=== PATIENT | female | born 1985 | race Caucasian/White ===

== ENCOUNTER 2018-06-07 19:37 | Inpatient (IN) | payer MEDICAID ==
--- NOTE | 2018-06-07 19:58 | ED Physician Chart ---
ED Chief Complaint/HPI - Patient Information Date Seen:: 06/07/18 Time Seen:: 19:55 Chief Complaint:: Left foot lesion History of Present Illness:: 33 yo female developed gradual onset of left foot lesions for 1 month. The ulcerative lesions cover almost the entire dorsal foot with oozing of fluid and swelling of the left foot. Patient states that the lesion is itchy without much pain. Patient took 2 oral antibiotics during past one week without improvement. Patient denied any recent history of trauma to the left foot. Patient denied history of diabetes. Allergies:: Allergies Allergy/AdvReac Type Severity Reaction Status Date / Time No Known Allergies Allergy Verified 06/07/18 19:44 Vitals:: Vital Signs - 8 hr 06/07/18 19:40 Temp 98.3 F HR 93 RR 18 BP 114/72 O2 Sat % 100 ED Review of Systems - Review of Systems General/Constitutional: No fever, No chills Skin: Skin lesions Head: No headache Eyes: No pain ENT: No nasal drainage Neck: No neck pain Cardio Vascular: No chest pain Pulmonary: No SOB GI: No nausea, No vomiting Musculoskeletal: No bone or joint pain Neurological: No focal symptoms ED Past Medical History - Past Medical History Past Medical History: No significant medical hx Social History: Non Smoker, No Alcohol, No Drug Use Surgical History: None Family Medical History - Family Member Mother History Unknown: Yes ED Physical Exam - Physical Examination General/Constitutional: Awake, Alert Head: Atraumatic Eyes: PERRL Skin: No ecchymosis ENMT: Nasal exam nl Neck: No nuchal rigidity Respiratory: Clear to Auscultation Cardio Vascular: RRR, No murmur, gallop, rubs, NL S1 S2 GI: No tenderness/rebounding/guarding Other Extremities comments:: Left foot and ankle swelling. The ulcerative lesion covers almost the entire dorsal foot with oozing of fluid. Increased pigmentation surrounding the lesion. Non-tender. Neuro/Psych: No focal deficits ED Labs/Radiology/EKG Results - Radiology Results Results: LLE arterial u/s: no stenosis, no plaque. Left DPA not imaged due to open sores/ oozing LLE venous u/s: negative DVT ED Assessment - Assessment General Assessment: Cellulitis and large ulcers of left foot to rule out vascular deficiency or possible diabetic ulcers Assessment/Comments:: CBC, CMP, HbA1c, CRP, ESR Arterial ultrasound of left lower extremity Venous ultrasound of left lower extremity Admitted to med surg for further evaluation and treatment ED Septic Shock - . Is Septic Shock (SBP<90, OR Lactate>4 mmol\L) present?: No - <6hrs of presentation: Vital Signs: Vital Signs - 8 hr 06/07/18 19:40 Temp 98.3 F HR 93 RR 18 BP 114/72 O2 Sat % 100 ED Reassessment (Disposition) - Reassessment Reassessment Condition:: Unchanged - Patient Disposition Discharge/Transfer:: Acute Care w/in this hosp Admitting Medical Physician:: Sedrick Lowe
[2018-06-07 20:17] LABS: % BASOPHILS 0.2 % (0.0-2.0); % LYMPHOCYTES 30.6 % (20.0-50.0); % MONOCYTES 5.9 % (2.0-10.0); % NEUTROPHILS 44.3 % (40.0-80.0); EOSINOPHILE ABSOLUTE 1.6 Th/cmm (0.1-0.4); HEMATOCRIT 36.3 % (41.0-60); HEMOGLOBIN 12.4 gm/dL (12-16); LYMPHOCYTE ABSOLUTE 2.5 Th/cmm (1.5-3.0); MEAN CELL VOLUME 84.8 fl (81-100); MEAN CORPUSCULAR HEMOGLOBIN 28.9 pg (27.0-31.0); MEAN CORPUSCULAR HGB CONC 34.1 pg (28.0-36.0); MONOCYTE ABSOLUTE 0.5 Th/cmm (0.3-1.0); NEUTROPHILE ABSOLUTE 3.6 Th/cmm (1.8-8.0); PLATELET COUNT 138 Th/cmm (150-400); RED BLOOD COUNT 4.28 Mil/cmm (3.80-5.10); RED CELL DISTRIBUTION WIDTH 13.1 % (11.5-20.0); WHITE BLOOD COUNT 8.2 Th/cmm (4.8-10.8)
[2018-06-07 20:33] LABS: A1C % 4.8 % (4.0-6.0); ALB/GLOB RATIO 1.7 (1.0-1.8); ALKALINE PHOSPHATASE 34 U/L (34-104); ANION GAP 8.2 (7.0-16.0); BILIRUBIN,TOTAL 0.3 mg/dL (0.3-1.0); BUN - UREA NITROGEN 15 mg/dL (7-25); CALCIUM SERUM 8.9 mg/dL (8.6-10.3); CARBON DIOXIDE 24.5 mEq/L (21.0-31.0); CHLORIDE 108 mEq/L (98-107); CREATININE - SERUM 0.8 mg/dL (0.6-1.2); GFR AFRICAN-AMERICAN > 60.0 ml/min (>90); GFR NON AFRICAN-AMERICAN > 60.0 ml/min; GLUCOSE 98 mg/dL (70-105); POTASSIUM SERUM 3.7 mEq/L (3.5-5.1); SGOT 13 U/L (13-39); SGPT/ALT 10 U/L (7-52); SODIUM SERUM 137 mEq/L (136-145); TOTAL PROTEIN,SERUM 6.4 gm/dL (6.0-8.3)
[2018-06-07 20:49] LABS: ESR SEDIMENTATION SED RATE 9 mm/hr (0-30)
[2018-06-08 01:10] VITALS: BP 97/57
[2018-06-08] MEDS: Sodium Chloride 0.9% 1,000 ML IV SCH ×2 (01:24→21:50)
[2018-06-08] MEDS ORDERED: Piperacillin Sodium/Tazobact 3.375 gm Vial IV ONE (04:31)
--- NOTE | 2018-06-08 08:59 | History and Physical ---
History of Present Illness - HPI Chief Complaint: Edema of left foot HPI: Patient refer that one month ago started with Edema and redness of left foot. Lesion increasing with ulceration of all dorzal area of left foot, despite to take 2 antibiotics x 4 days. 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 Pertinent Hx GI: Report: No Pertinent Hx Psych: Report: No Pertinent Hx Musculoskeletal: Report: No Pertinent Hx Rheumatologic: Report: No pertinent Hx Infectious Disease: Report: No Pertinent Hx Renal/: Report: No Pertinent Hx Endocrine: Report: No Pertinent Hx Dermatology: Report: No Pertinent Hx - Past Surgical History Past Surgical History: No pertinent Hx Family Medical History - Family Member Mother History Unknown: Yes Social History Smoke: No Alcohol: None Drugs: None Lives: With Family Domestic Violence: Negative - Allergies Allergies/Adverse Reactions: Allergies Allergy/AdvReac Type Severity Reaction Status Date / Time No Known Allergies Allergy Verified 06/07/18 19:44 Review of Systems - Review of Systems Constitutional: Report: Sweats Eyes: Report: No Significant ENT: Report: No Significant Respiratory: Report: No Significant Cardiovascular: Report: No Significant Gastrointestinal: Report: No Significant Genitourinary: Report: No Significant Musculoskeletal: Report: No Significant Skin: Report: Other (Ulcer in dorzal area of left foot ) Neurological: Report: No Significant Physical Exam - Physical Exam HEENT: Report: Ears Nose Throat within normal limits Neck: Report: Within normal limits Cardiovascular Systems: Report: Regular, Rate and Rhythm Respiratory: Report: Breath Sounds are within normal limits Abdomen: Report: Non-tender to palpation Back: Report: Inspection of back is within normal limits. Extremities: Report: Other (Linited movement of left foot) Skin: Report: Other (Ulcer that cover most of dorzal area of left foot with oozing) Neuro/Psych: Report: Mood affect is within normal limits - Lab Results All Lab Results last 24 hours: Laboratory Results - last 24 hr 08/14/18 08/14/18 08/14/18 20:05 20:05 20:05 WBC 8.2 RBC 4.28 Hgb 12.4 Hct 36.3 L MCV 84.8 MCH 28.9 MCHC Differential 34.1 RDW 13.1 Plt Count 138 L MPV 9.0 Neutrophils % 44.3 Lymphocytes % 30.6 Monocytes % 5.9 Eosinophils % 19.0 H Basophils % 0.2 Neutrophils (Manual) Not Reportable ESR 9 Sodium 137 Potassium 3.7 Chloride 108 H Carbon Dioxide 24.5 Anion Gap 8.2 BUN 15 Creatinine 0.8 Est GFR ( Amer) > 60.0 Est GFR (Non-Af Amer) > 60.0 BUN/Creatinine Ratio 18.8 Glucose 98 Hemoglobin A1c % 4.8 Calcium 8.9 Total Bilirubin 0.3 AST 13 ALT 10 Alkaline Phosphatase 34 C-Reactive Protein Total Protein 6.4 Albumin 4.0 Globulin 2.4 Albumin/Globulin Ratio 1.7 06/07/18 20:05 WBC RBC Hgb Hct MCV MCH MCHC Differential RDW Plt Count MPV Neutrophils % Lymphocytes % Monocytes % Eosinophils % Basophils % Neutrophils (Manual) ESR Sodium Potassium Chloride Carbon Dioxide Anion Gap BUN Creatinine Est GFR ( Amer) Est GFR (Non-Af Amer) BUN/Creatinine Ratio Glucose Hemoglobin A1c % Calcium Total Bilirubin AST ALT Alkaline Phosphatase C-Reactive Protein < 0.2 Total Protein Albumin Globulin Albumin/Globulin Ratio - Assessment Assessment: Patient is awake, alert, calm, in no acute distress. US shows no blood obstruction. Dx: Cellulitis. - Plan Plan: Patient in IV Vanco and zosyn, consult with surgery and ID requested. Will continue to monitor.
--- NOTE | 2018-06-08 09:20 | Diagnostic Imaging Report ---
Bilateral lower extremity DVT study HISTORY: Left foot cellulitis and swelling COMPARISON: None Technique: Longitudinal and transverse sonographic images of the bilateral lower extremity veins were obtained with doppler analysis. FINDINGS: There is normal compressibility, augmentation and phasicity of the bilateral common femoral, superficial femoral, popliteal, and posterior tibial veins. No thrombus is visualized. Incidentally noted is prominent left groin lymph node with fatty claudia measuring up to 3.3 x 2.9 cm. IMPRESSION: No evidence of thrombus within the bilateral lower extremity veins. Prominent left groin lymph node with fatty hilum measuring up to 3.3 x 2.9 cm. Findings are nonspecific and may be reactive.
--- NOTE | 2018-06-08 09:23 | Diagnostic Imaging Report ---
Bilateral lower extremity arterial study HISTORY: Left lower extremity cellulitis and swelling COMPARISON: None Technique: Longitudinal and transverse sonographic images of the bilateral lower extremity arteries were obtained with doppler analysis. FINDINGS: Exam of the right side demonstrates triphasic flow with the right common femoral and superficial femoral arteries. Biphasic flow is seen in the popliteal, tibialis anterior, tibialis posterior and dorsalis pedis arteries. Mild atherosclerosis is noted. Exam of the left side demonstrates triphasic flow in the left common femoral artery extending to left popliteal artery. There is biphasic flow within the left tibialis anterior and tibialis posterior arteries. The left dorsalis pedis artery is not visualized due to overlying bandage material. Mild atherosclerotic vascular disease is noted. Ankle brachial indices were not performed. IMPRESSION: Mild atherosclerotic vascular disease. No Evidence of hemodynamically significant stenosis. The left dorsalis pedis artery was not able to be imaged due to overlying sores in this region. If necessary CT angiography of of the lower extremity may also be obtained.
--- NOTE | 2018-06-08 12:50 | Diagnostic Imaging Report ---
CT left lower extremity with IV contrast History: Pain and swelling, rule out osteomyelitis Comparison: None Technique: Axial images were obtained from the left distal tibia to the forefoot with IV contrast. Multiplanar reconstructions were made. Total DLP 78 CTDI 3.1 Findings: There is diffuse subcutaneous edema seen greatest along the dorsal foot. No drainable fluid collection identified. No evidence of an acute fracture. No osseous erosions identified. Mild degenerative changes are noted. IMPRESSION: Diffuse subcutaneous edema greatest along the dorsal foot. Please correlate clinically for cellulitis. No drainable fluid collection identified No osseous erosions. No CT evidence of osteomyelitis. If there is continued concern for osteomyelitis, MRI follow-up may be obtained.
--- NOTE | 2018-06-08 13:07 | General Progress Note ---
Subjective - Review of Systems Service Date: 06/08/18 Events since last encounter: WENT TO ER AT [facility] A MONTH AGO AND WAS TOLD SHE HAD FUNGAL INFECTION/ VENOUS AND ARTERIAL DOPPLER NEGATIVE CT OF LEG NO DRAINABLE ABSCESS ID BILINGUAL [employer]ER TO TREAT MEDICALLY ELEVATE LEG AND WARM COMPRESS RECOMMENDED Objective - Results Result Diagrams: 06/07/18 20:05 06/07/18 20:05 Recent Labs: Laboratory Last Values WBC 8.2 Th/cmm (4.8-10.8) 06/07/18 20:05 RBC 4.28 Mil/cmm (3.80-5.10) 06/07/18 20:05 Hgb 12.4 gm/dL (12-16) 06/07/18 20:05 Hct 36.3 % (41.0-60) L 06/07/18 20:05 MCV 84.8 fl (81-100) 06/07/18 20:05 MCH 28.9 pg (27.0-31.0) 06/07/18 20:05 MCHC Differential 34.1 pg (28.0-36.0) 06/07/18 20:05 RDW 13.1 % (11.5-20.0) 06/07/18 20:05 Plt Count 138 Th/cmm (150-400) L 06/07/18 20:05 MPV 9.0 fl 06/07/18 20:05 Neutrophils % 44.3 % (40.0-80.0) 06/07/18 20:05 Lymphocytes % 30.6 % (20.0-50.0) 06/07/18 20:05 Monocytes % 5.9 % (2.0-10.0) 06/07/18 20:05 Eosinophils % 19.0 % (0.0-5.0) H 06/07/18 20:05 Basophils % 0.2 % (0.0-2.0) 06/07/18 20:05 Neutrophils (Manual) Not Reportable 06/07/18 20:05 ESR 9 mm/hr (0-30) 06/07/18 20:05 Sodium 137 mEq/L (136-145) 06/07/18 20:05 Potassium 3.7 mEq/L (3.5-5.1) 06/07/18 20:05 Chloride 108 mEq/L (98-107) H 06/07/18 20:05 Carbon Dioxide 24.5 mEq/L (21.0-31.0) 06/07/18 20:05 Anion Gap 8.2 (7.0-16.0) 06/07/18 20:05 BUN 15 mg/dL (7-25) 06/07/18 20:05 Creatinine 0.8 mg/dL (0.6-1.2) 06/07/18 20:05 Est GFR ( Amer) > 60.0 ml/min (>90) 06/07/18 20:05 Est GFR (Non-Af Amer) > 60.0 ml/min 06/07/18 20:05 BUN/Creatinine Ratio 18.8 06/07/18 20:05 Glucose 98 mg/dL (70-105) 06/07/18 20:05 Hemoglobin A1c % 4.8 % (4.0-6.0) 06/07/18 20:05 Calcium 8.9 mg/dL (8.6-10.3) 06/07/18 20:05 Total Bilirubin 0.3 mg/dL (0.3-1.0) 06/07/18 20:05 AST 13 U/L (13-39) 06/07/18 20:05 ALT 10 U/L (7-52) 06/07/18 20:05 Alkaline Phosphatase 34 U/L (34-104) 06/07/18 20:05 C-Reactive Protein < 0.2 mg/dL (0.0-0.9) 06/07/18 20:05 Total Protein 6.4 gm/dL (6.0-8.3) 06/07/18 20:05 Albumin 4.0 gm/dL (3.7-5.3) 06/07/18 20:05 Globulin 2.4 gm/dL 06/07/18 20:05 Albumin/Globulin Ratio 1.7 (1.0-1.8) 06/07/18 20:05 - Physical Exam Vitals and I&O: Vital Signs Temp 97.0 F 06/08/18 11:39 Pulse 69 06/08/18 11:39 Resp 18 06/08/18 11:39 BP 85/60 06/08/18 11:39 Pulse Ox 100 06/08/18 11:39 Intake & Output 08/06/08/18 06/08/18 18:59 06:59 18:59 Intake Total 350 Balance 350 Weight (lbs) 66.678 kg Intake: Intake, IV Amount 50 Piperacillin Sodium/ 50 Tazobact 3.375 gm In Sodium Chloride 0.9% 50 ml @ 100 mls/hr IV Q8HR [facility] Rx#:[id number] Oral 300 Other: # Voids 2 # Bowel Movements 0 Weight Source Bedscale Active Medications: Current Medications Sodium Chloride (Nacl 0.9%) 1,000 mls @ 75 mls/hr IV .[id number] [facility] Stop: 08/06/18 23:29 Last Admin: 06/08/18 01:24 Dose: 75 mls/hr Piperacillin Sod/Tazobactam (Sod 3.375 gm/ Sodium Chloride) 50 mls @ 100 mls/ hr IV Q8HR [facility] Stop: 08/07/18 04:59 Last Admin: 06/08/18 12:35 Dose: 100 mls/hr Vancomycin HCl 1 gm/ Sodium (Chloride) 250 mls @ 165 mls/hr IV Q12HR@0900,2100 [facility] Stop: 08/07/18 10:59 Last Admin: 06/08/18 11:42 Dose: 165 mls/hr Miscellaneous (Vancomycin Iv Per Pharmacy) 1 daisha [facility] PRN PRN PRN Reason: PROTOCOL Stop: 08/07/18 08:29 Naproxen (Naprosyn) 500 mg PO BIDWM [facility] Stop: 08/07/18 17:59
[2018-06-08] MEDS ORDERED: IOHEXOL 300mgI/mL 100 ML VIAL IVP ONE (15:02)
--- NOTE | 2018-06-08 21:11 | Consultation ---
DATE OF CONSULTATION: 06/08/2018 INFECTIOUS DISEASE CONSULTATION REFERRING PHYSICIAN: Sedrick Lowe M.D. REASON FOR CONSULTATION: Cellulitis of left foot. HISTORY OF PRESENT ILLNESS: The patient is a 33-year-old female developed swelling and redness of the left foot with very dry skin. She stated that she fell fungal infection. However, she was given Bactrim with no help. So her condition got worse and now developed a superficial sloughing of the skin. So, she came to the ER for further evaluation and management. As per the record, the patient has taken 2 oral antibiotics with no improvement. PAST MEDICAL HISTORY: Noncontributory. None significant. ALLERGIES: NKDA. MEDICATIONS: As per medication reconciliation sheet. Antibiotic heaton, the patient is receiving vancomycin IV and Zosyn. SOCIAL HISTORY: The patient lives at home. Denies any smoking, alcohol or drug use. The patient lives with family at home. FAMILY HISTORY: Noncontributory. REVIEW OF SYSTEMS: GENERAL: The patient denies any fever or chills. HEENT: No diplopia, no photophobia, no sore throat. RESPIRATORY: No cough, no shortness of breath. CARDIOVASCULAR: No chest pain or palpitation. GASTROINTESTINAL: No nausea, no vomiting, no diarrhea, no constipation. GENITOURINARY: No dysuria. NEUROLOGIC: No headache, no dizziness, no focal weakness. SKIN: The patient has superficial ulceration of dorsal aspect of the left foot with swelling of the left foot. PHYSICAL EXAMINATION: VITAL SIGNS: Shows temperature is 97 degrees Fahrenheit, pulse 69, respiration is 18, blood pressure 85/60. GENERAL: The patient is comfortable lying in the bed, not in acute distress, well nourished, well developed. HEENT: Head is normocephalic, atraumatic. Oral cavity moist, pink tongue. Eyes: Pallor is present, no icterus. Pupils PERRLA, EOMI. NECK: Supple, no JVD, no carotid bruit. Trachea in midline. CHEST: Bilateral breath sounds. No crackles or wheezing. HEART: S1, S2 within normal limits. Regular rhythm. No murmur, no gallop. ABDOMEN: Soft, nontender, nondistended. Bowel sounds present. EXTREMITIES: No cyanosis, no clubbing, no edema. The patient has swelling of the left foot. There is dry skin, dermatitis of the left foot distal to the ankle joint. There is a superficial ulceration of the dorsal aspect of the left foot. Did review the pictures for detail. NEUROLOGIC: Alert, awake, oriented x 3. No focal history. LABORATORY DATA: Current lab shows WBC count is 8200, hemoglobin 12.4, hematocrit 36.3, platelets are 138,000, neutrophil is 44.3%. Sodium 137, potassium 3.7, chloride 108, bicarbonate is 24.5, BUN 15, creatinine 0.8, glucose is 98. Blood cultures are pending. IMPRESSION: 1. Left foot cellulitis with superficial ulceration on the dorsal aspect. 2. Dry skin dermatitis versus fungal infection. RECOMMENDATIONS: I agree with vancomycin and Zosyn at this time, wound care. Check the blood culture and wound cultures. Depending on the culture report, we will define final antibiotic therapy. Thank you, Dr. Lowe for involving me in taking care of this patient. ADDENDUM CT scan of the left foot suggest cellulitis. No evidence of osteomyelitis. Venous ultrasound of lower extremities showed no evidence of DVT. Arterial ultrasound suggested no evidence of hemodynamically significant stenosis. Thank you, Dr. Lowe for involving me in taking care of this patient. JOB# [id number]
--- NOTE | 2018-06-09 08:26 | Diagnostic Imaging Report ---
Chest x-ray single view History: Chest pain Comparison: None The heart size is normal. No focal pulmonary parenchymal processes. No hilar or mediastinal abnormalities. Impression: No acute abnormalities
--- NOTE | 2018-06-09 08:57 | General Progress Note ---
Subjective - Review of Systems Service Date: 06/09/18 Subjective: I am better Objective - Results Result Diagrams: 06/07/18 20:05 06/07/18 20:05 Recent Labs: Laboratory Last Values WBC 8.2 Th/cmm (4.8-10.8) 06/07/18 20:05 RBC 4.28 Mil/cmm (3.80-5.10) 06/07/18 20:05 Hgb 12.4 gm/dL (12-16) 06/07/18 20:05 Hct 36.3 % (41.0-60) L 06/07/18 20:05 MCV 84.8 fl (81-100) 06/07/18 20:05 MCH 28.9 pg (27.0-31.0) 06/07/18 20:05 MCHC Differential 34.1 pg (28.0-36.0) 06/07/18 20:05 RDW 13.1 % (11.5-20.0) 06/07/18 20:05 Plt Count 138 Th/cmm (150-400) L 06/07/18 20:05 MPV 9.0 fl 06/07/18 20:05 Neutrophils % 44.3 % (40.0-80.0) 06/07/18 20:05 Lymphocytes % 30.6 % (20.0-50.0) 06/07/18 20:05 Monocytes % 5.9 % (2.0-10.0) 06/07/18 20:05 Eosinophils % 19.0 % (0.0-5.0) H 06/07/18 20:05 Basophils % 0.2 % (0.0-2.0) 06/07/18 20:05 Neutrophils (Manual) Not Reportable 06/07/18 20:05 ESR 9 mm/hr (0-30) 06/07/18 20:05 Sodium 137 mEq/L (136-145) 06/07/18 20:05 Potassium 3.7 mEq/L (3.5-5.1) 06/07/18 20:05 Chloride 108 mEq/L (98-107) H 06/07/18 20:05 Carbon Dioxide 24.5 mEq/L (21.0-31.0) 06/07/18 20:05 Anion Gap 8.2 (7.0-16.0) 06/07/18 20:05 BUN 15 mg/dL (7-25) 06/07/18 20:05 Creatinine 0.8 mg/dL (0.6-1.2) 06/07/18 20:05 Est GFR ( Amer) > 60.0 ml/min (>90) 06/07/18 20:05 Est GFR (Non-Af Amer) > 60.0 ml/min 06/07/18 20:05 BUN/Creatinine Ratio 18.8 06/07/18 20:05 Glucose 98 mg/dL (70-105) 06/07/18 20:05 Hemoglobin A1c % 4.8 % (4.0-6.0) 06/07/18 20:05 Calcium 8.9 mg/dL (8.6-10.3) 06/07/18 20:05 Total Bilirubin 0.3 mg/dL (0.3-1.0) 06/07/18 20:05 AST 13 U/L (13-39) 06/07/18 20:05 ALT 10 U/L (7-52) 06/07/18 20:05 Alkaline Phosphatase 34 U/L (34-104) 06/07/18 20:05 C-Reactive Protein < 0.2 mg/dL (0.0-0.9) 06/07/18 20:05 Total Protein 6.4 gm/dL (6.0-8.3) 06/07/18 20:05 Albumin 4.0 gm/dL (3.7-5.3) 06/07/18 20:05 Globulin 2.4 gm/dL 06/07/18 20:05 Albumin/Globulin Ratio 1.7 (1.0-1.8) 06/07/18 20:05 Vancomycin Trough 8.6 ug/mL (5-10) 06/09/18 08:10 - Physical Exam Vitals and I&O: Vital Signs Temp 97.9 F 06/09/18 08:47 Pulse 61 06/09/18 08:47 Resp 18 06/09/18 08:47 BP 80/38 06/09/18 08:47 Pulse Ox 100 06/09/18 08:47 Intake & Output 06/08/18 06/09/18 06/09/18 18:59 06:59 18:59 Intake Total 1900 850 Balance 1900 850 Weight (lbs) 66.678 kg 64.41 kg Intake: Intake, IV Amount 1300 350 Piperacillin Sodium/ 50 100 Tazobact 3.375 gm In Sodium Chloride 0.9% 50 ml @ 100 mls/hr IV Q8HR [facility] Rx#:[id number] Sodium Chloride 0.9% 1, 1000 000 ml @ 75 mls/hr IV . [id number] [facility] Rx#:[id number] Vancomycin HCl 1 gm In 250 250 Sodium Chloride 0.9% 250 ml @ 165 mls/hr IV Q12HR@ 0900,2100 [facility] Rx#: [id number] Oral 600 500 Other: # Voids 3 3 # Bowel Movements 1 1 Stool Characteristics Soft Weight Source Bedscale Bedscale Active Medications: Current Medications Sodium Chloride (Nacl 0.9%) 1,000 mls @ 75 mls/hr IV .[id number] [facility] Stop: 08/06/18 23:29 Last Admin: 06/08/18 21:50 Dose: 75 mls/hr Piperacillin Sod/Tazobactam (Sod 3.375 gm/ Sodium Chloride) 50 mls @ 100 mls/ hr IV Q8HR [facility] Stop: 08/07/18 04:59 Last Infusion: 06/09/18 05:48 Dose: Infused Vancomycin HCl 1 gm/ Sodium (Chloride) 250 mls @ 165 mls/hr IV Q12HR@0900,2100 [facility] Stop: 08/07/18 10:59 Last Admin: 06/09/18 08:32 Dose: 165 mls/hr Miscellaneous (Vancomycin Iv Per Pharmacy) 1 [facility] PRN PRN PRN Reason: PROTOCOL Stop: 08/07/18 08:29 Naproxen (Naprosyn) 500 mg PO BIDWM [facility] Stop: 08/07/18 17:59 Last Admin: 06/09/18 08:31 Dose: 500 mg Terbinafine HCl (Lamisil) 250 mg PO DAILY [facility] Stop: 08/08/18 08:59 General: Alert, Oriented x3, No acute distress HEENT: Atraumatic Neck: Supple Cardiovascular: Regular rate Lungs: Clear to auscultation Abdomen: Bowel sounds Extremities: Other (Less edema of left foot, more dry) Skin: Other (Dry blister of left dorzal area of left foot.) Psych/Mental Status: Mental status NL Assessment/Plan - Assessment Assessment: Patient is awake, alert, calm, in no acute distress. US shows no blood obstruction. Foot CT shows cellulitis, no osteomyelitis. Dx: Cellulitis. - Plan Plan: Patient in IV [facility], Already seen by surgery and ID. Due to the history of athlet foot Terbinafine will be introduced. Will continue to monitor.
--- NOTE | 2018-06-09 10:51 | Consultation ---
DATE OF CONSULTATION: 06/08/2018 SURGICAL CONSULTATION REFERRING PHYSICIAN: Sedrick Lowe MD REASON FOR CONSULTATION: Cellulitis, left foot. Thank you for referring this patient to me. HISTORY OF PRESENT ILLNESS: This is a 33-year-old female who claimed that about a month ago, she was in the ER at [facility] where she was diagnosed with a fungal infection and was given medication. She then followed up with her primary doctor and treatment was continued; however, the condition got worse for which she is admitted now. PAST MEDICAL HISTORY: Unremarkable. The patient had undergone Doppler studies including venous and arterial ultrasound were negative. CT scan of the leg does not show any drainable fluid collection. PHYSICAL EXAMINATION: Shows scaling and swelling of the left foot with some minor superficial ulcerations. No fluctuant mass. Circulation appears to be intact with no ischemic change of toes. RECOMMENDATION: Antibiotics is instituted per ID senior compensation consultant, elevation of the foot is important. There appears to be no surgical indication for any procedure. We will follow with you. [facility]# [id number]
--- NOTE | 2018-06-09 13:53 | Infectious Disease Prog Note ---
Infectious Disease Subjective - Review of Systems Service Date: 06/09/18 Subjective: No new change, no fever. Infectious Disease Objective - Results Result Diagrams: 06/07/18 20:05 06/07/18 20:05 Recent Labs: Laboratory Last Values WBC 8.2 Th/cmm (4.8-10.8) 06/07/18 20:05 RBC 4.28 Mil/cmm (3.80-5.10) 06/07/18 20:05 Hgb 12.4 gm/dL (12-16) 06/07/18 20:05 Hct 36.3 % (41.0-60) L 06/07/18 20:05 MCV 84.8 fl (81-100) 06/07/18 20:05 MCH 28.9 pg (27.0-31.0) 06/07/18 20:05 MCHC Differential 34.1 pg (28.0-36.0) 06/07/18 20:05 RDW 13.1 % (11.5-20.0) 06/07/18 20:05 Plt Count 138 Th/cmm (150-400) L 06/07/18 20:05 MPV 9.0 fl 06/07/18 20:05 Neutrophils % 44.3 % (40.0-80.0) 06/07/18 20:05 Lymphocytes % 30.6 % (20.0-50.0) 06/07/18 20:05 Monocytes % 5.9 % (2.0-10.0) 06/07/18 20:05 Eosinophils % 19.0 % (0.0-5.0) H 06/07/18 20:05 Basophils % 0.2 % (0.0-2.0) 06/07/18 20:05 Neutrophils (Manual) Not Reportable 06/07/18 20:05 ESR 9 mm/hr (0-30) 06/07/18 20:05 Sodium 137 mEq/L (136-145) 06/07/18 20:05 Potassium 3.7 mEq/L (3.5-5.1) 06/07/18 20:05 Chloride 108 mEq/L (98-107) H 06/07/18 20:05 Carbon Dioxide 24.5 mEq/L (21.0-31.0) 06/07/18 20:05 Anion Gap 8.2 (7.0-16.0) 06/07/18 20:05 BUN 15 mg/dL (7-25) 06/07/18 20:05 Creatinine 0.8 mg/dL (0.6-1.2) 06/07/18 20:05 Est GFR ( Amer) > 60.0 ml/min (>90) 06/07/18 20:05 Est GFR (Non-Af Amer) > 60.0 ml/min 06/07/18 20:05 BUN/Creatinine Ratio 18.8 06/07/18 20:05 Glucose 98 mg/dL (70-105) 06/07/18 20:05 Hemoglobin A1c % 4.8 % (4.0-6.0) 06/07/18 20:05 Calcium 8.9 mg/dL (8.6-10.3) 06/07/18 20:05 Total Bilirubin 0.3 mg/dL (0.3-1.0) 06/07/18 20:05 AST 13 U/L (13-39) 06/07/18 20:05 ALT 10 U/L (7-52) 06/07/18 20:05 Alkaline Phosphatase 34 U/L (34-104) 06/07/18 20:05 C-Reactive Protein < 0.2 mg/dL (0.0-0.9) 06/07/18 20:05 Total Protein 6.4 gm/dL (6.0-8.3) 06/07/18 20:05 Albumin 4.0 gm/dL (3.7-5.3) 06/07/18 20:05 Globulin 2.4 gm/dL 06/07/18 20:05 Albumin/Globulin Ratio 1.7 (1.0-1.8) 06/07/18 20:05 Vancomycin Trough 8.6 ug/mL (5-10) 06/09/18 08:10 - Physical Exam Vitals and I&O: Vital Signs Temp 98.1 F 06/09/18 11:50 Pulse 62 06/09/18 11:50 Resp 18 06/09/18 11:50 BP 93/49 06/09/18 11:50 Pulse Ox 100 06/09/18 11:50 Intake & Output 08/15/18 08/16/18 08/16/18 18:59 06:59 18:59 Intake Total 1900 850 240 Balance 1900 850 240 Weight (lbs) 66.678 kg 64.41 kg 63.957 kg Intake: Intake, IV Amount 1300 350 Piperacillin Sodium/ 50 100 Tazobact 3.375 gm In Sodium Chloride 0.9% 50 ml @ 100 mls/hr IV Q8HR [facility] Rx#:[id number] Sodium Chloride 0.9% 1, 1000 000 ml @ 75 mls/hr IV . [id number] [facility] Rx#:[id number] Vancomycin HCl 1 gm In 250 250 Sodium Chloride 0.9% 250 ml @ 165 mls/hr IV Q12HR@ 0900,2100 [facility] Rx#: [id number] Oral 600 500 240 Other: # Voids 3 3 # Bowel Movements 1 1 Stool Characteristics Soft Soft Weight Source Bedscale Bedscale Bedscale Active Medications: Current Medications Sodium Chloride (Nacl 0.9%) 1,000 mls @ 75 mls/hr IV .[id number] [facility] Stop: 08/06/18 23:29 Last Admin: 06/08/18 21:50 Dose: 75 mls/hr Piperacillin Sod/Tazobactam (Sod 3.375 gm/ Sodium Chloride) 50 mls @ 100 mls/ hr IV Q8HR [facility] Stop: 08/07/18 04:59 Last Admin: 06/09/18 12:29 Dose: 100 mls/hr Vancomycin HCl 1.25 gm/ Sodium (Chloride) 250 mls @ 165 mls/hr IV Q12H [facility] Stop: 08/08/18 09:14 Last Admin: 06/09/18 09:21 Dose: Not Given Miscellaneous (Vancomycin Iv Per Pharmacy) 1 [facility] PRN PRN PRN Reason: PROTOCOL Stop: 08/07/18 08:29 Naproxen (Naprosyn) 500 mg PO BIDWM [facility] Stop: 08/07/18 17:59 Last Admin: 06/09/18 08:31 Dose: 500 mg Terbinafine HCl (Lamisil) 250 mg PO DAILY [facility] Stop: 08/08/18 08:59 Last Admin: 06/09/18 11:06 Dose: Not Given General: no acute distress, well developed, well nourished HEENT: atraumatic, normocephalic, PERRLA Neck: supple, no thyromegaly Cardiovascular: S1S2, regular Lungs: clear to auscultation bilaterally, clear to percussion Abdomen: soft, no tender, no distended Extremities: other (significant inprovement.), no cyanosis, no clubbing Neurological: awake, alert, oriented Infectious Disease Assmt/Plan - Assessment Assessment: 1. Cellulitis of the left foot. with superficial wound, improving. - Plan Plan: Change antibiotics to meropene, which can be changed to INvanz 1 gm IV daily for 7days from now. wound care. Ok to DC from ID point of view.
[2018-06-09] MEDS: Meropenem 1 GM in Sodium Chloride 0.9% 100 ML IV SCH ×2 (14:24→21:35)
[2018-06-09] MEDS: Sodium Chloride 0.9% 1,000 ML IV SCH (17:55)
[2018-06-10] MEDS: Meropenem 1 GM in Sodium Chloride 0.9% 100 ML IV SCH ×3 (05:22→22:16)
[2018-06-10 06:53] LABS: ALB/GLOB RATIO 1.5 (1.0-1.8); ALBUMIN 3.1 gm/dL (3.7-5.3); ALKALINE PHOSPHATASE 20 U/L (34-104); ANION GAP 7.9 (7.0-16.0); BILIRUBIN,TOTAL 0.5 mg/dL (0.3-1.0); BUN - UREA NITROGEN 5 mg/dL (7-25); CALCIUM SERUM 8.1 mg/dL (8.6-10.3); CARBON DIOXIDE 23.8 mEq/L (21.0-31.0); CHLORIDE 109 mEq/L (98-107); CREATININE - SERUM 0.6 mg/dL (0.6-1.2); GFR AFRICAN-AMERICAN > 60.0 ml/min (>90); GFR NON AFRICAN-AMERICAN > 60.0 ml/min; GLUCOSE 83 mg/dL (70-105); POTASSIUM SERUM 3.7 mEq/L (3.5-5.1); SGOT 11 U/L (13-39); SGPT/ALT 10 U/L (7-52); SODIUM SERUM 137 mEq/L (136-145); TOTAL PROTEIN,SERUM 5.2 gm/dL (6.0-8.3)
[2018-06-10 06:56] LABS: HEMATOCRIT 33.1 % (41.0-60); HEMOGLOBIN 11.3 gm/dL (12-16); MEAN CELL VOLUME 85.2 fl (81-100); MEAN PLATELET VOLUME 9.3 fl; PLATELET COUNT 124 Th/cmm (150-400); RED BLOOD COUNT 3.89 Mil/cmm (3.80-5.10); RED CELL DISTRIBUTION WIDTH 12.9 % (11.5-20.0); WHITE BLOOD COUNT 6.3 Th/cmm (4.8-10.8)
[2018-06-10 07:31] LABS: BAND NEUTROPHILE 0 % (0-10); BASOPHIL 0 % (0-3); EOSINOPHIL 16 % (0-5); LYMPHOCYTE 31 % (20-50); MONOCYTE 7 % (2-10); NEUTROPHILS 46 % (40-80)
--- NOTE | 2018-06-10 09:01 | General Progress Note ---
Subjective - Review of Systems Service Date: 06/10/18 Subjective: I am better Objective - Results Result Diagrams: 06/10/18 05:55 06/10/18 05:55 Recent Labs: Laboratory Last Values WBC 6.3 Th/cmm (4.8-10.8) 06/10/18 05:55 RBC 3.89 Mil/cmm (3.80-5.10) 06/10/18 05:55 Hgb 11.3 gm/dL (12-16) L 06/10/18 05:55 Hct 33.1 % (41.0-60) L 06/10/18 05:55 MCV 85.2 fl (81-100) 06/10/18 05:55 MCH 29.0 pg (27.0-31.0) 06/10/18 05:55 MCHC Differential 34.0 pg (28.0-36.0) 06/10/18 05:55 RDW 12.9 % (11.5-20.0) 06/10/18 05:55 Plt Count 124 Th/cmm (150-400) L 06/10/18 05:55 MPV 9.3 fl 06/10/18 05:55 Add Manual Diff YES 06/10/18 05:55 Neutrophils % 44.3 % (40.0-80.0) 06/07/18 20:05 Band Neutrophils % 0 % (0-10) 06/10/18 05:55 Lymphocytes % 30.6 % (20.0-50.0) 06/07/18 20:05 Monocytes % 5.9 % (2.0-10.0) 06/07/18 20:05 Eosinophils % 19.0 % (0.0-5.0) H 06/07/18 20:05 Basophils % 0.2 % (0.0-2.0) 06/07/18 20:05 Neutrophils (Manual) 46 % (40-80) 06/10/18 05:55 Lymphocytes 31 % (20-50) 06/10/18 05:55 Monocytes 7 % (2-10) 06/10/18 05:55 Eosinophils 16 % (0-5) H 06/10/18 05:55 Basophils 0 % (0-3) 06/10/18 05:55 ESR 9 mm/hr (0-30) 06/07/18 20:05 Sodium 137 mEq/L (136-145) 06/10/18 05:55 Potassium 3.7 mEq/L (3.5-5.1) 06/10/18 05:55 Chloride 109 mEq/L (98-107) H 06/10/18 05:55 Carbon Dioxide 23.8 mEq/L (21.0-31.0) 06/10/18 05:55 Anion Gap 7.9 (7.0-16.0) 06/10/18 05:55 BUN 5 mg/dL (7-25) L 06/10/18 05:55 Creatinine 0.6 mg/dL (0.6-1.2) 06/10/18 05:55 Est GFR ( Amer) > 60.0 ml/min (>90) 06/10/18 05:55 Est GFR (Non-Af Amer) > 60.0 ml/min 06/10/18 05:55 BUN/Creatinine Ratio 8.3 06/10/18 05:55 Glucose 83 mg/dL (70-105) 06/10/18 05:55 Hemoglobin A1c % 4.8 % (4.0-6.0) 06/07/18 20:05 Calcium 8.1 mg/dL (8.6-10.3) L 06/10/18 05:55 Total Bilirubin 0.5 mg/dL (0.3-1.0) 06/10/18 05:55 AST 11 U/L (13-39) L 06/10/18 05:55 ALT 10 U/L (7-52) 06/10/18 05:55 Alkaline Phosphatase 20 U/L (34-104) L 06/10/18 05:55 C-Reactive Protein < 0.2 mg/dL (0.0-0.9) 06/07/18 20:05 Total Protein 5.2 gm/dL (6.0-8.3) L 06/10/18 05:55 Albumin 3.1 gm/dL (3.7-5.3) L 06/10/18 05:55 Globulin 2.1 gm/dL 06/10/18 05:55 Albumin/Globulin Ratio 1.5 (1.0-1.8) 06/10/18 05:55 Vancomycin Trough 8.6 ug/mL (5-10) 06/09/18 08:10 - Physical Exam Vitals and I&O: Vital Signs Temp 98.9 F 06/10/18 04:00 Pulse 64 06/10/18 04:00 Resp 18 06/10/18 04:00 BP 104/51 06/10/18 04:00 Pulse Ox 100 06/10/18 04:00 Intake & Output 06/09/18 06/10/18 06/10/18 18:59 06:59 18:59 Intake Total 1340 1068.75 Balance 1340 1068.75 Weight (lbs) 63.957 kg 63.73 kg Intake: Intake, IV Amount 1100 1068.75 Meropenem 1 gm In Sodium 100 200 Chloride 0.9% 100 ml @ 100 mls/hr IV Q8H [facility] Rx# :[id number] Sodium Chloride 0.9% 1, 1000 868.75 000 ml @ 75 mls/hr IV . [id number] [facility] Rx#:[id number] Oral 240 Other: # Voids 3 # Bowel Movements 2 Stool Characteristics Soft Weight Source Bedscale Bedscale Active Medications: Current Medications Sodium Chloride (Nacl 0.9%) 1,000 mls @ 75 mls/hr IV .[id number] [facility] Stop: 08/06/18 23:29 Last Infusion: 06/10/18 05:30 Dose: 75 mls/hr Meropenem 1 gm/ Sodium (Chloride) 100 mls @ 100 mls/hr IV Q8H [facility] Stop: 08/08/18 13:59 Last Infusion: 06/10/18 06:27 Dose: Infused Naproxen (Naprosyn) 500 mg PO BIDWM [facility] Stop: 08/07/18 17:59 Last Admin: 06/09/18 17:41 Dose: 500 mg Terbinafine HCl (Lamisil) 250 mg PO DAILY [facility] Stop: 08/08/18 08:59 Last Admin: 06/09/18 14:12 Dose: 250 mg General: Alert, Oriented x3, No acute distress HEENT: Atraumatic Neck: Supple Cardiovascular: Regular rate Lungs: Clear to auscultation Abdomen: Bowel sounds Extremities: Other (Less edema of left foot, more dry improving) Skin: Other (Dry blister of left dorzal area of left foot.) Psych/Mental Status: Mental status NL Assessment/Plan - Assessment Assessment: Patient is awake, alert, calm, in no acute distress. Patient improving Dx: Cellulitis. - Plan Plan: Patient in Meropenem, Already seen by surgery and ID. Due to the history of athlet foot Terbinafine will be introduced. Will continue to monitor. Nutritional Asmnt/Malnutr-PDOC - Dietary Evaluation Malnutrition Findings (Please click <Entered> for more info): Nutritional Asmnt/Malnutrition Start: 06/09/18 14: 48 Text: Status: Complete Freq: Protocol: Document 06/09/18 15:04 LCHENG (Rec: 06/09/18 15:11 [email or web address] [email or web address]) Nutritional Asmnt/Malnutrition Patient General Information Nutritional Screening Low Risk Consult Diagnosis left foot cellulitis Pertinent Medical Hx/Surgical Hx No significant medical hx Subjective Information Pt seen sitting up in bed at time of visit, just finished lunch. Pt does not speak Indonesian. Pt showed good lunch. Per EMR, PO intake 100%, meeting nutritional needs. Consult received for weeping foot/wounds. Current Diet Order/ Nutrition Support regular Pertinent Medications nacl 0.9% Pertinent Labs 06/07 Cl 108, glucose 98, A1c 4 .8 Nutritional Hx/Data Height 1.6 m Height (Calculated Centimeters) 160.0 Current Weight (lbs) 63.957 kg Weight (Calculated Kilograms) 64.0 Weight (Calculated Grams) 31810.5 [place] Body Weight 115 Body Mass Index (BMI) 25.0 Weight Status Overweight GI Symptoms GI Symptoms None Last BM 06/09 Difficult in: None Skin Integrity/Comment: CELLULITIS ON LEFT FOOT Current %PO Good (75-100%) Estimated Nutritional Goals BEE in Kcals: Using Current wt Calories/Kcals/Kg 23-27 Kcals Calculated 0777-1743 Protein: Using Current wt Protein g/k-1.2 Protein Calculated 65-78 Fluid: ml 1495-1755ml (1ml/kcal) Nutritional Problem 1. Problem Problem increased protien needs Etiology impaired skin integrity Signs/Symptoms: wound on left foot Malnutrition Alert Is there a minimum of two criteria No selected? Query Text:Check all the applicable criteria. A minimum of two criteria are recommended for diagnosis of either severe or non-severe malnutrition. Malnutrition Related to Morbid Obesity Malnutrition related to morbid obesity No Intervention/Recommendation Comments 1. Continue with regular diet as ordered. 2. Monitor PO intake, wt, labs and skin integrity 3. F/U as low risk in 7 days, 06/16 Expected Outcomes/Goals Expected Outcomes/Goals 1. PO intake to meet at least 75% of nutritional needs. 2. Wt stability, skin to remain intact, labs to approach WNL.
[2018-06-10] MEDS: Sodium Chloride 0.9% 1,000 ML IV SCH (09:22)
--- NOTE | 2018-06-10 21:29 | Infectious Disease Prog Note ---
Infectious Disease Subjective - Review of Systems Service Date: 06/10/18 Subjective: No new change, no fever. Infectious Disease Objective - Results Result Diagrams: 06/10/18 05:55 06/10/18 05:55 Recent Labs: Laboratory Last Values WBC 6.3 Th/cmm (4.8-10.8) 06/10/18 05:55 RBC 3.89 Mil/cmm (3.80-5.10) 06/10/18 05:55 Hgb 11.3 gm/dL (12-16) L 06/10/18 05:55 Hct 33.1 % (41.0-60) L 06/10/18 05:55 MCV 85.2 fl (81-100) 06/10/18 05:55 MCH 29.0 pg (27.0-31.0) 06/10/18 05:55 MCHC Differential 34.0 pg (28.0-36.0) 06/10/18 05:55 RDW 12.9 % (11.5-20.0) 06/10/18 05:55 Plt Count 124 Th/cmm (150-400) L 06/10/18 05:55 MPV 9.3 fl 06/10/18 05:55 Add Manual Diff YES 06/10/18 05:55 Neutrophils % 44.3 % (40.0-80.0) 06/07/18 20:05 Band Neutrophils % 0 % (0-10) 06/10/18 05:55 Lymphocytes % 30.6 % (20.0-50.0) 06/07/18 20:05 Monocytes % 5.9 % (2.0-10.0) 06/07/18 20:05 Eosinophils % 19.0 % (0.0-5.0) H 06/07/18 20:05 Basophils % 0.2 % (0.0-2.0) 06/07/18 20:05 Neutrophils (Manual) 46 % (40-80) 06/10/18 05:55 Lymphocytes 31 % (20-50) 06/10/18 05:55 Monocytes 7 % (2-10) 06/10/18 05:55 Eosinophils 16 % (0-5) H 06/10/18 05:55 Basophils 0 % (0-3) 06/10/18 05:55 ESR 9 mm/hr (0-30) 06/07/18 20:05 Sodium 137 mEq/L (136-145) 06/10/18 05:55 Potassium 3.7 mEq/L (3.5-5.1) 06/10/18 05:55 Chloride 109 mEq/L (98-107) H 06/10/18 05:55 Carbon Dioxide 23.8 mEq/L (21.0-31.0) 06/10/18 05:55 Anion Gap 7.9 (7.0-16.0) 06/10/18 05:55 BUN 5 mg/dL (7-25) L 06/10/18 05:55 Creatinine 0.6 mg/dL (0.6-1.2) 06/10/18 05:55 Est GFR ( Amer) > 60.0 ml/min (>90) 06/10/18 05:55 Est GFR (Non-Af Amer) > 60.0 ml/min 06/10/18 05:55 BUN/Creatinine Ratio 8.3 06/10/18 05:55 Glucose 83 mg/dL (70-105) 06/10/18 05:55 Hemoglobin A1c % 4.8 % (4.0-6.0) 06/07/18 20:05 Calcium 8.1 mg/dL (8.6-10.3) L 06/10/18 05:55 Total Bilirubin 0.5 mg/dL (0.3-1.0) 06/10/18 05:55 AST 11 U/L (13-39) L 06/10/18 05:55 ALT 10 U/L (7-52) 06/10/18 05:55 Alkaline Phosphatase 20 U/L (34-104) L 06/10/18 05:55 C-Reactive Protein < 0.2 mg/dL (0.0-0.9) 06/07/18 20:05 Total Protein 5.2 gm/dL (6.0-8.3) L 06/10/18 05:55 Albumin 3.1 gm/dL (3.7-5.3) L 06/10/18 05:55 Globulin 2.1 gm/dL 06/10/18 05:55 Albumin/Globulin Ratio 1.5 (1.0-1.8) 06/10/18 05:55 Vancomycin Trough 8.6 ug/mL (5-10) 06/09/18 08:10 - Physical Exam Vitals and I&O: Vital Signs Temp 98.1 F 06/10/18 15:50 Pulse 61 06/10/18 15:50 Resp 18 06/10/18 15:50 BP 97/63 06/10/18 15:50 Pulse Ox 100 06/10/18 15:50 Intake & Output 06/10/18 06/10/18 06/11/18 06:59 18:59 06:59 Intake Total 1068.75 431.25 Balance 1068.75 431.25 Weight (lbs) 63.73 kg 63.957 kg Intake: Intake, IV Amount 1068.75 131.25 Meropenem 1 gm In Sodium 200 Chloride 0.9% 100 ml @ 100 mls/hr IV Q8H [facility] Rx# :[id number] Sodium Chloride 0.9% 1, 868.75 131.25 000 ml @ 75 mls/hr IV . [id number] [facility] Rx#:[id number] Oral 300 Other: # Voids 3 3 # Bowel Movements 2 Weight Source Bedscale Bedscale Active Medications: Current Medications Sodium Chloride (Nacl 0.9%) 1,000 mls @ 75 mls/hr IV .[id number] [facility] Stop: 08/06/18 23:29 Last Admin: 06/10/18 09:22 Dose: 75 mls/hr Meropenem 1 gm/ Sodium (Chloride) 100 mls @ 100 mls/hr IV Q8H [facility] Stop: 08/08/18 13:59 Last Admin: 06/10/18 13:00 Dose: 100 mls/hr Naproxen (Naprosyn) 500 mg PO BIDWM [facility] Stop: 08/07/18 17:59 Last Admin: 06/10/18 17:34 Dose: Not Given Terbinafine HCl (Lamisil) 250 mg PO DAILY [facility] Stop: 08/08/18 08:59 Last Admin: 06/10/18 09:20 Dose: 250 mg General: no acute distress, well developed, well nourished HEENT: atraumatic, normocephalic, PERRLA, EOMI Neck: supple, thyromegaly Cardiovascular: S1S2, regular Lungs: clear to auscultation bilaterally, clear to percussion Abdomen: soft, no tender Extremities: other (l;eft foot is improving.), no cyanosis, no clubbing, no edema Neurological: awake, alert, oriented Infectious Disease Assmt/Plan - Assessment Assessment: 1. Cellulitis of the left foot. with superficial wound, improving. 2. Tinea pedis - Plan Plan: Change antibiotics to meropene, which can be changed to INvanz 1 gm IV daily for 5 days from now. wound care. Agree with lamisil. Ok to DC from ID point of view. Nutritional Asmnt/Malnutr-PDOC - Dietary Evaluation Malnutrition Findings (Please click <Entered> for more info): Nutritional Asmnt/Malnutrition Start: 06/09/18 14: 48 Text: Status: Complete Freq: Protocol: Document 06/09/18 15:04 LCHENG (Rec: 06/09/18 15:11 LCTERESAG [email or web address]) Nutritional Asmnt/Malnutrition Patient General Information Nutritional Screening Low Risk Consult Diagnosis left foot cellulitis Pertinent Medical Hx/Surgical Hx No significant medical hx Subjective Information Pt seen sitting up in bed at time of visit, just finished lunch. Pt does not speak [place]kin[place]. Pt showed good lunch. Per EMR, PO intake 100%, meeting nutritional needs. Consult received for weeping foot/wounds. Current Diet Order/ Nutrition Support regular Pertinent Medications nacl 0.9% Pertinent Labs 06/07 Cl 108, glucose 98, A1c 4 .8 Nutritional Hx/Data Height 1.6 m Height (Calculated Centimeters) 160.0 Current Weight (lbs) 63.957 kg Weight (Calculated Kilograms) 64.0 Weight (Calculated Grams) 26424.5 [place] Body Weight 115 Body Mass Index (BMI) 25.0 Weight Status Overweight GI Symptoms GI Symptoms None Last BM 06/09 Difficult in: None Skin Integrity/Comment: CELLULITIS ON LEFT FOOT Current %PO Good (75-100%) Estimated Nutritional Goals BEE in Kcals: Using Current wt Calories/Kcals/Kg 23-27 Kcals Calculated 5533-0473 Protein: Using Current wt Protein g/k-1.2 Protein Calculated 65-78 Fluid: ml 1495-1755ml (1ml/kcal) Nutritional Problem 1. Problem Problem increased protien needs Etiology impaired skin integrity Signs/Symptoms: wound on left foot Malnutrition Alert Is there a minimum of two criteria No selected? Query Text:Check all the applicable criteria. A minimum of two criteria are recommended for diagnosis of either severe or non-severe malnutrition. Malnutrition Related to Morbid Obesity Malnutrition related to morbid obesity No Intervention/Recommendation Comments 1. Continue with regular diet as ordered. 2. Monitor PO intake, wt, labs and skin integrity 3. F/U as low risk in 7 days, 06/16 Expected Outcomes/Goals Expected Outcomes/Goals 1. PO intake to meet at least 75% of nutritional needs. 2. Wt stability, skin to remain intact, labs to approach WNL.
[2018-06-11] MEDS: Sodium Chloride 0.9% 1,000 ML IV SCH ×2 (01:38→12:57)
[2018-06-11] MEDS: Meropenem 1 GM in Sodium Chloride 0.9% 100 ML IV SCH ×3 (05:23→21:18)
[2018-06-11 05:53] LABS: % BASOPHILS 0.5 % (0.0-2.0); % EOSINOPHILS 14.2 % (0.0-5.0); % LYMPHOCYTES 38.5 % (20.0-50.0); % MONOCYTES 7.4 % (2.0-10.0); % NEUTROPHILS 39.4 % (40.0-80.0); EOSINOPHILE ABSOLUTE 0.8 Th/cmm (0.1-0.4); HEMATOCRIT 33.4 % (41.0-60); HEMOGLOBIN 11.3 gm/dL (12-16); LYMPHOCYTE ABSOLUTE 2.3 Th/cmm (1.5-3.0); MEAN CELL VOLUME 85.6 fl (81-100); MEAN CORPUSCULAR HGB CONC 33.9 pg (28.0-36.0); MEAN PLATELET VOLUME 9.2 fl; MONOCYTE ABSOLUTE 0.4 Th/cmm (0.3-1.0); NEUTROPHILE ABSOLUTE 2.2 Th/cmm (1.8-8.0); PLATELET COUNT 115 Th/cmm (150-400); RED CELL DISTRIBUTION WIDTH 12.4 % (11.5-20.0); WHITE BLOOD COUNT 5.7 Th/cmm (4.8-10.8)
[2018-06-11 05:56] LABS: ALB/GLOB RATIO 1.5 (1.0-1.8); ALBUMIN 3.1 gm/dL (3.7-5.3); ALKALINE PHOSPHATASE 21 U/L (34-104); BILIRUBIN,TOTAL 0.4 mg/dL (0.3-1.0); BUN - UREA NITROGEN 4 mg/dL (7-25); CALCIUM SERUM 8.3 mg/dL (8.6-10.3); CARBON DIOXIDE 23.7 mEq/L (21.0-31.0); CHLORIDE 110 mEq/L (98-107); CREATININE - SERUM 0.5 mg/dL (0.6-1.2); GFR AFRICAN-AMERICAN > 60.0 ml/min (>90); GFR NON AFRICAN-AMERICAN > 60.0 ml/min; GLUCOSE 89 mg/dL (70-105); POTASSIUM SERUM 3.7 mEq/L (3.5-5.1); SGOT 24 U/L (13-39); SGPT/ALT 20 U/L (7-52); SODIUM SERUM 138 mEq/L (136-145); TOTAL PROTEIN,SERUM 5.2 gm/dL (6.0-8.3)
--- NOTE | 2018-06-11 08:34 | General Progress Note ---
Subjective - Review of Systems Service Date: 06/11/18 Subjective: I am better. Objective - Results Result Diagrams: 06/11/18 05:05 06/11/18 05:05 Recent Labs: Laboratory Last Values WBC 5.7 Th/cmm (4.8-10.8) 06/11/18 05:05 RBC 3.90 Mil/cmm (3.80-5.10) 06/11/18 05:05 Hgb 11.3 gm/dL (12-16) L 06/11/18 05:05 Hct 33.4 % (41.0-60) L 06/11/18 05:05 MCV 85.6 fl (81-100) 06/11/18 05:05 MCH 29.0 pg (27.0-31.0) 06/11/18 05:05 MCHC Differential 33.9 pg (28.0-36.0) 06/11/18 05:05 RDW 12.4 % (11.5-20.0) 06/11/18 05:05 Plt Count 115 Th/cmm (150-400) L 06/11/18 05:05 MPV 9.2 fl 06/11/18 05:05 Add Manual Diff YES 06/10/18 05:55 Neutrophils % 39.4 % (40.0-80.0) L 06/11/18 05:05 Band Neutrophils % 0 % (0-10) 06/10/18 05:55 Lymphocytes % 38.5 % (20.0-50.0) 06/11/18 05:05 Monocytes % 7.4 % (2.0-10.0) 06/11/18 05:05 Eosinophils % 14.2 % (0.0-5.0) H 06/11/18 05:05 Basophils % 0.5 % (0.0-2.0) 06/11/18 05:05 Neutrophils (Manual) 46 % (40-80) 06/10/18 05:55 Lymphocytes 31 % (20-50) 06/10/18 05:55 Monocytes 7 % (2-10) 06/10/18 05:55 Eosinophils 16 % (0-5) H 06/10/18 05:55 Basophils 0 % (0-3) 06/10/18 05:55 ESR 9 mm/hr (0-30) 06/07/18 20:05 Sodium 138 mEq/L (136-145) 06/11/18 05:05 Potassium 3.7 mEq/L (3.5-5.1) 06/11/18 05:05 Chloride 110 mEq/L (98-107) H 06/11/18 05:05 Carbon Dioxide 23.7 mEq/L (21.0-31.0) 06/11/18 05:05 Anion Gap 8.0 (7.0-16.0) 06/11/18 05:05 BUN 4 mg/dL (7-25) L 06/11/18 05:05 Creatinine 0.5 mg/dL (0.6-1.2) L 06/11/18 05:05 Est GFR ( Amer) > 60.0 ml/min (>90) 06/11/18 05:05 Est GFR (Non-Af Amer) > 60.0 ml/min 06/11/18 05:05 BUN/Creatinine Ratio 8.0 06/11/18 05:05 Glucose 89 mg/dL (70-105) 06/11/18 05:05 Hemoglobin A1c % 4.8 % (4.0-6.0) 06/07/18 20:05 Calcium 8.3 mg/dL (8.6-10.3) L 06/11/18 05:05 Total Bilirubin 0.4 mg/dL (0.3-1.0) 06/11/18 05:05 AST 24 U/L (13-39) 06/11/18 05:05 ALT 20 U/L (7-52) 06/11/18 05:05 Alkaline Phosphatase 21 U/L (34-104) L 06/11/18 05:05 C-Reactive Protein < 0.2 mg/dL (0.0-0.9) 06/07/18 20:05 Total Protein 5.2 gm/dL (6.0-8.3) L 06/11/18 05:05 Albumin 3.1 gm/dL (3.7-5.3) L 06/11/18 05:05 Globulin 2.1 gm/dL 06/11/18 05:05 Albumin/Globulin Ratio 1.5 (1.0-1.8) 06/11/18 05:05 Vancomycin Trough 8.6 ug/mL (5-10) 06/09/18 08:10 - Physical Exam Vitals and I&O: Vital Signs Temp 97.4 F 06/11/18 07:58 Pulse 65 06/11/18 07:58 Resp 20 06/11/18 07:58 BP 98/55 06/11/18 07:58 Pulse Ox 100 06/11/18 07:58 Intake & Output 06/10/18 06/11/18 06/11/18 18:59 06:59 18:59 Intake Total 531.25 1100 200 Balance 531.25 1100 200 Weight (lbs) 63.957 kg 64.41 kg Intake: Intake, IV Amount 231.25 1100 Meropenem 1 gm In Sodium 100 100 Chloride 0.9% 100 ml @ 100 mls/hr IV Q8H [facility] Rx# :[id number] Sodium Chloride 0.9% 1, 131.25 1000 000 ml @ 75 mls/hr IV . [id number] [facility] Rx#:[id number] Oral 300 200 Other: # Voids 3 3 # Bowel Movements 2 Weight Source Bedscale Bedscale Active Medications: Current Medications Sodium Chloride (Nacl 0.9%) 1,000 mls @ 75 mls/hr IV .[id number] [facility] Stop: 08/06/18 23:29 Last Admin: 06/11/18 01:38 Dose: 75 mls/hr Meropenem 1 gm/ Sodium (Chloride) 100 mls @ 100 mls/hr IV Q8H [facility] Stop: 08/08/18 13:59 Last Admin: 06/11/18 05:23 Dose: 100 mls/hr Naproxen (Naprosyn) 500 mg PO BIDWM ISABELA Stop: 08/07/18 17:59 Last Admin: 06/11/18 08:07 Dose: 500 mg Terbinafine HCl (Lamisil) 250 mg PO DAILY [facility] Stop: 08/08/18 08:59 Last Admin: 06/11/18 08:07 Dose: 250 mg General: Alert, Oriented x3, No acute distress HEENT: Atraumatic Neck: Supple Cardiovascular: Regular rate Lungs: Clear to auscultation Abdomen: Bowel sounds Extremities: Other (Less edema of left foot, more dry improving) Skin: Other (Dry blister of left dorzal area of left foot.) Psych/Mental Status: Mental status NL Assessment/Plan - Assessment Assessment: Patient is awake, alert, calm, in no acute distress. Patient improving Dx: Cellulitis. - Plan Plan: Patient in Meropenem, Already seen by surgery and ID. Due to the history of athlet foot Terbinafine will be introduced. Will continue to monitor. Nutritional Asmnt/Malnutr-PDOC - Dietary Evaluation Malnutrition Findings (Please click <Entered> for more info): Nutritional Asmnt/Malnutrition Start: 06/09/18 14: 48 Text: Status: Complete Freq: Protocol: Document 06/09/18 15:04 LCHENG (Rec: 06/09/18 15:11 [email or web address] [email or web address]) Nutritional Asmnt/Malnutrition Patient General Information Nutritional Screening Low Risk Consult Diagnosis left foot cellulitis Pertinent Medical Hx/Surgical Hx No significant medical hx Subjective Information Pt seen sitting up in bed at time of visit, just finished lunch. Pt does not speak [place]. Pt showed good lunch. Per EMR, PO intake 100%, meeting nutritional needs. Consult received for weeping foot/wounds. Current Diet Order/ Nutrition Support regular Pertinent Medications nacl 0.9% Pertinent Labs 06/07 Cl 108, glucose 98, A1c 4 .8 Nutritional Hx/Data Height 1.6 m Height (Calculated Centimeters) 160.0 Current Weight (lbs) 63.957 kg Weight (Calculated Kilograms) 64.0 Weight (Calculated Grams) 86694.5 [place] Body Weight 115 Body Mass Index (BMI) 25.0 Weight Status Overweight GI Symptoms GI Symptoms None Last BM 06/09 Difficult in: None Skin Integrity/Comment: CELLULITIS ON LEFT FOOT Current %PO Good (75-100%) Estimated Nutritional Goals BEE in Kcals: Using Current wt Calories/Kcals/Kg 23-27 Kcals Calculated 3662-7052 Protein: Using Current wt Protein g/k-1.2 Protein Calculated 65-78 Fluid: ml 1495-1755ml (1ml/kcal) Nutritional Problem 1. Problem Problem increased protien needs Etiology impaired skin integrity Signs/Symptoms: wound on left foot Malnutrition Alert Is there a minimum of two criteria No selected? Query Text:Check all the applicable criteria. A minimum of two criteria are recommended for diagnosis of either severe or non-severe malnutrition. Malnutrition Related to Morbid Obesity Malnutrition related to morbid obesity No Intervention/Recommendation Comments 1. Continue with regular diet as ordered. 2. Monitor PO intake, wt, labs and skin integrity 3. F/U as low risk in 7 days, 06/16 Expected Outcomes/Goals Expected Outcomes/Goals 1. PO intake to meet at least 75% of nutritional needs. 2. Wt stability, skin to remain intact, labs to approach WNL.
[2018-06-12] MEDS: Sodium Chloride 0.9% 1,000 ML IV SCH ×2 (03:09→20:03)
[2018-06-12] MEDS: Meropenem 1 GM in Sodium Chloride 0.9% 100 ML IV SCH ×3 (05:27→21:43)
--- NOTE | 2018-06-12 09:42 | General Progress Note ---
Subjective - Review of Systems Service Date: 06/12/18 Subjective: I am better. Objective - Results Result Diagrams: 06/13/18 06:00 06/13/18 06:00 Recent Labs: Laboratory Last Values WBC 5.7 Th/cmm (4.8-10.8) 06/11/18 05:05 RBC 3.90 Mil/cmm (3.80-5.10) 06/11/18 05:05 Hgb 11.3 gm/dL (12-16) L 06/11/18 05:05 Hct 33.4 % (41.0-60) L 06/11/18 05:05 MCV 85.6 fl (81-100) 06/11/18 05:05 MCH 29.0 pg (27.0-31.0) 06/11/18 05:05 MCHC Differential 33.9 pg (28.0-36.0) 06/11/18 05:05 RDW 12.4 % (11.5-20.0) 06/11/18 05:05 Plt Count 115 Th/cmm (150-400) L 06/11/18 05:05 MPV 9.2 fl 06/11/18 05:05 Add Manual Diff YES 06/10/18 05:55 Neutrophils % 39.4 % (40.0-80.0) L 06/11/18 05:05 Band Neutrophils % 0 % (0-10) 06/10/18 05:55 Lymphocytes % 38.5 % (20.0-50.0) 06/11/18 05:05 Monocytes % 7.4 % (2.0-10.0) 06/11/18 05:05 Eosinophils % 14.2 % (0.0-5.0) H 06/11/18 05:05 Basophils % 0.5 % (0.0-2.0) 06/11/18 05:05 Neutrophils (Manual) 46 % (40-80) 06/10/18 05:55 Lymphocytes 31 % (20-50) 06/10/18 05:55 Monocytes 7 % (2-10) 06/10/18 05:55 Eosinophils 16 % (0-5) H 06/10/18 05:55 Basophils 0 % (0-3) 06/10/18 05:55 ESR 9 mm/hr (0-30) 06/07/18 20:05 Sodium 138 mEq/L (136-145) 06/11/18 05:05 Potassium 3.7 mEq/L (3.5-5.1) 06/11/18 05:05 Chloride 110 mEq/L (98-107) H 06/11/18 05:05 Carbon Dioxide 23.7 mEq/L (21.0-31.0) 06/11/18 05:05 Anion Gap 8.0 (7.0-16.0) 06/11/18 05:05 BUN 4 mg/dL (7-25) L 06/11/18 05:05 Creatinine 0.5 mg/dL (0.6-1.2) L 06/11/18 05:05 Est GFR ( Amer) > 60.0 ml/min (>90) 06/11/18 05:05 Est GFR (Non-Af Amer) > 60.0 ml/min 06/11/18 05:05 BUN/Creatinine Ratio 8.0 06/11/18 05:05 Glucose 89 mg/dL (70-105) 06/11/18 05:05 Hemoglobin A1c % 4.8 % (4.0-6.0) 06/07/18 20:05 Calcium 8.3 mg/dL (8.6-10.3) L 06/11/18 05:05 Total Bilirubin 0.4 mg/dL (0.3-1.0) 06/11/18 05:05 AST 24 U/L (13-39) 06/11/18 05:05 ALT 20 U/L (7-52) 06/11/18 05:05 Alkaline Phosphatase 21 U/L (34-104) L 06/11/18 05:05 C-Reactive Protein < 0.2 mg/dL (0.0-0.9) 06/07/18 20:05 Total Protein 5.2 gm/dL (6.0-8.3) L 06/11/18 05:05 Albumin 3.1 gm/dL (3.7-5.3) L 06/11/18 05:05 Globulin 2.1 gm/dL 06/11/18 05:05 Albumin/Globulin Ratio 1.5 (1.0-1.8) 06/11/18 05:05 Vancomycin Trough 8.6 ug/mL (5-10) 06/09/18 08:10 - Physical Exam Vitals and I&O: Vital Signs Temp 99.0 F 06/12/18 07:38 Pulse 69 06/12/18 07:38 Resp 18 06/12/18 07:38 BP 88/54 06/12/18 07:38 Pulse Ox 100 06/12/18 07:38 Intake & Output 06/11/18 06/12/18 06/12/18 18:59 06:59 18:59 Intake Total 1448.75 1400 100 Balance 1448.75 1400 100 Weight (lbs) 63.775 kg 63.673 kg Intake: Intake, IV Amount 948.75 1100 100 Meropenem 1 gm In Sodium 100 100 100 Chloride 0.9% 100 ml @ 100 mls/hr IV Q8H [facility] Rx# :[id number] Sodium Chloride 0.9% 1, 848.75 1000 000 ml @ 75 mls/hr IV . [id number] [facility] Rx#:[id number] Oral 500 300 Other: # Voids 5 4 # Bowel Movements 0 2 Stool Characteristics Soft Weight Source Bedscale Bedscale Active Medications: Current Medications Sodium Chloride (Nacl 0.9%) 1,000 mls @ 75 mls/hr IV .[id number] [facility] Stop: 08/06/18 23:29 Last Admin: 06/12/18 03:09 Dose: 75 mls/hr Meropenem 1 gm/ Sodium (Chloride) 100 mls @ 100 mls/hr IV Q8H [facility] Stop: 08/08/18 13:59 Last Infusion: 06/12/18 07:24 Dose: Infused Naproxen (Naprosyn) 500 mg PO BIDWM [facility] Stop: 08/07/18 17:59 Last Admin: 06/11/18 17:07 Dose: Not Given Terbinafine HCl (Lamisil) 250 mg PO DAILY [facility] Stop: 08/08/18 08:59 Last Admin: 06/11/18 08:07 Dose: 250 mg General: Alert, Oriented x3, No acute distress HEENT: Atraumatic Neck: Supple Cardiovascular: Regular rate Lungs: Clear to auscultation Abdomen: Bowel sounds Extremities: Other (Less edema of left foot, more dry improving) Skin: Other (Dry blister of left dorzal area of left foot.) Psych/Mental Status: Mental status NL Assessment/Plan - Assessment Assessment: Patient is awake, alert, calm, in no acute distress. Patient improving Dx: Cellulitis. - Plan Plan: Patient in Meropenem, Already seen by surgery and ID. Due to the history of athlet foot Terbinafine will be introduced. Awaiting arrangement of home health to continue with IV AB at home. Will continue to monitor. Nutritional Asmnt/Malnutr-PDOC - Dietary Evaluation Malnutrition Findings (Please click <Entered> for more info): Nutritional Asmnt/Malnutrition Start: 06/09/18 14: 48 Text: Status: Complete Freq: Protocol: Document 06/09/18 15:04 LCHENG (Rec: 06/09/18 15:11 LCTERESAG [email or web address]) Nutritional Asmnt/Malnutrition Patient General Information Nutritional Screening Low Risk Consult Diagnosis left foot cellulitis Pertinent Medical Hx/Surgical Hx No significant medical hx Subjective Information Pt seen sitting up in bed at time of visit, just finished lunch. Pt does not speak [place]. Pt showed good lunch. Per EMR, PO intake 100%, meeting nutritional needs. Consult received for weeping foot/wounds. Current Diet Order/ Nutrition Support regular Pertinent Medications nacl 0.9% Pertinent Labs 06/07 Cl 108, glucose 98, A1c 4 .8 Nutritional Hx/Data Height 1.6 m Height (Calculated Centimeters) 160.0 Current Weight (lbs) 63.957 kg Weight (Calculated Kilograms) 64.0 Weight (Calculated Grams) 46366.5 [place] Body Weight 115 Body Mass Index (BMI) 25.0 Weight Status Overweight GI Symptoms GI Symptoms None Last BM 06/09 Difficult in: None Skin Integrity/Comment: CELLULITIS ON LEFT FOOT Current %PO Good (75-100%) Estimated Nutritional Goals BEE in Kcals: Using Current wt Calories/Kcals/Kg 23-27 Kcals Calculated 2430-2045 Protein: Using Current wt Protein g/k-1.2 Protein Calculated 65-78 Fluid: ml 1495-1755ml (1ml/kcal) Nutritional Problem 1. Problem Problem increased protien needs Etiology impaired skin integrity Signs/Symptoms: wound on left foot Malnutrition Alert Is there a minimum of two criteria No selected? Query Text:Check all the applicable criteria. A minimum of two criteria are recommended for diagnosis of either severe or non-severe malnutrition. Malnutrition Related to Morbid Obesity Malnutrition related to morbid obesity No Intervention/Recommendation Comments 1. Continue with regular diet as ordered. 2. Monitor PO intake, wt, labs and skin integrity 3. F/U as low risk in 7 days, 06/16 Expected Outcomes/Goals Expected Outcomes/Goals 1. PO intake to meet at least 75% of nutritional needs. 2. Wt stability, skin to remain intact, labs to approach WNL.
--- NOTE | 2018-06-12 18:00 | Infectious Disease Prog Note ---
Infectious Disease Subjective - Review of Systems Service Date: 06/12/18 Subjective: No new change, no fever. Infectious Disease Objective - Results Result Diagrams: 06/11/18 05:05 06/11/18 05:05 Recent Labs: Laboratory Last Values WBC 5.7 Th/cmm (4.8-10.8) 06/11/18 05:05 RBC 3.90 Mil/cmm (3.80-5.10) 06/11/18 05:05 Hgb 11.3 gm/dL (12-16) L 06/11/18 05:05 Hct 33.4 % (41.0-60) L 06/11/18 05:05 MCV 85.6 fl (81-100) 06/11/18 05:05 MCH 29.0 pg (27.0-31.0) 06/11/18 05:05 MCHC Differential 33.9 pg (28.0-36.0) 06/11/18 05:05 RDW 12.4 % (11.5-20.0) 06/11/18 05:05 Plt Count 115 Th/cmm (150-400) L 06/11/18 05:05 MPV 9.2 fl 06/11/18 05:05 Add Manual Diff YES 06/10/18 05:55 Neutrophils % 39.4 % (40.0-80.0) L 06/11/18 05:05 Band Neutrophils % 0 % (0-10) 06/10/18 05:55 Lymphocytes % 38.5 % (20.0-50.0) 06/11/18 05:05 Monocytes % 7.4 % (2.0-10.0) 06/11/18 05:05 Eosinophils % 14.2 % (0.0-5.0) H 06/11/18 05:05 Basophils % 0.5 % (0.0-2.0) 06/11/18 05:05 Neutrophils (Manual) 46 % (40-80) 06/10/18 05:55 Lymphocytes 31 % (20-50) 06/10/18 05:55 Monocytes 7 % (2-10) 06/10/18 05:55 Eosinophils 16 % (0-5) H 06/10/18 05:55 Basophils 0 % (0-3) 06/10/18 05:55 ESR 9 mm/hr (0-30) 06/07/18 20:05 Sodium 138 mEq/L (136-145) 06/11/18 05:05 Potassium 3.7 mEq/L (3.5-5.1) 06/11/18 05:05 Chloride 110 mEq/L (98-107) H 06/11/18 05:05 Carbon Dioxide 23.7 mEq/L (21.0-31.0) 06/11/18 05:05 Anion Gap 8.0 (7.0-16.0) 06/11/18 05:05 BUN 4 mg/dL (7-25) L 06/11/18 05:05 Creatinine 0.5 mg/dL (0.6-1.2) L 06/11/18 05:05 Est GFR ( Amer) > 60.0 ml/min (>90) 06/11/18 05:05 Est GFR (Non-Af Amer) > 60.0 ml/min 06/11/18 05:05 BUN/Creatinine Ratio 8.0 06/11/18 05:05 Glucose 89 mg/dL (70-105) 06/11/18 05:05 Hemoglobin A1c % 4.8 % (4.0-6.0) 06/07/18 20:05 Calcium 8.3 mg/dL (8.6-10.3) L 06/11/18 05:05 Total Bilirubin 0.4 mg/dL (0.3-1.0) 06/11/18 05:05 AST 24 U/L (13-39) 06/11/18 05:05 ALT 20 U/L (7-52) 06/11/18 05:05 Alkaline Phosphatase 21 U/L (34-104) L 06/11/18 05:05 C-Reactive Protein < 0.2 mg/dL (0.0-0.9) 06/07/18 20:05 Total Protein 5.2 gm/dL (6.0-8.3) L 06/11/18 05:05 Albumin 3.1 gm/dL (3.7-5.3) L 06/11/18 05:05 Globulin 2.1 gm/dL 06/11/18 05:05 Albumin/Globulin Ratio 1.5 (1.0-1.8) 06/11/18 05:05 Vancomycin Trough 8.6 ug/mL (5-10) 06/09/18 08:10 - Physical Exam Vitals and I&O: Vital Signs Temp 97.4 F 06/12/18 11:42 Pulse 66 06/12/18 11:42 Resp 18 06/12/18 11:42 BP 100/61 06/12/18 11:42 Pulse Ox 100 06/12/18 11:42 Intake & Output 06/11/18 06/12/18 06/12/18 18:59 06:59 18:59 Intake Total 1448.75 1400 100 Balance 1448.75 1400 100 Weight (lbs) 63.775 kg 63.673 kg Intake: Intake, IV Amount 948.75 1100 100 Meropenem 1 gm In Sodium 100 100 100 Chloride 0.9% 100 ml @ 100 mls/hr IV Q8H [facility] Rx# :[id number] Sodium Chloride 0.9% 1, 848.75 1000 000 ml @ 75 mls/hr IV . [id number] [facility] Rx#:[id number] Oral 500 300 Other: # Voids 5 4 # Bowel Movements 0 2 Stool Characteristics Soft Weight Source Bedscale Bedscale Active Medications: Current Medications Sodium Chloride (Nacl 0.9%) 1,000 mls @ 75 mls/hr IV .[id number] [facility] Stop: 08/06/18 23:29 Last Admin: 06/12/18 03:09 Dose: 75 mls/hr Meropenem 1 gm/ Sodium (Chloride) 100 mls @ 100 mls/hr IV Q8H [facility] Stop: 08/08/18 13:59 Last Admin: 06/12/18 13:45 Dose: 100 mls/hr Naproxen (Naprosyn) 500 mg PO BIDWM [facility] Stop: 08/07/18 17:59 Last Admin: 06/12/18 17:44 Dose: 500 mg Terbinafine HCl (Lamisil) 250 mg PO DAILY [facility] Stop: 08/08/18 08:59 Last Admin: 06/12/18 10:03 Dose: 250 mg General: no acute distress, well developed, well nourished HEENT: atraumatic, normocephalic, PERRLA, EOMI Neck: supple, no thyromegaly Cardiovascular: S1S2, regular Abdomen: soft, no tender, no distended Extremities: other (left foot better. dry scabbing.), no cyanosis, no clubbing, no edema Neurological: awake, alert, oriented Skin: intact Infectious Disease Assmt/Plan - Assessment Assessment: 1. Cellulitis of the left foot. with superficial wound, improving. 2. Tinea pedis - Plan Plan: Change antibiotics to meropene, which can be changed to INvanz 1 gm IV daily for 3 days from now. If she does well, dc home in am without antibiotics. Apply Lac hydrin. wound care. Agree with lamisil. Ok to DC from ID point of view. Nutritional Asmnt/Malnutr-PDOC - Dietary Evaluation Malnutrition Findings (Please click <Entered> for more info): Nutritional Asmnt/Malnutrition Start: 06/09/18 14: 48 Text: Status: Complete Freq: Protocol: Document 06/09/18 15:04 LCHENG (Rec: 06/09/18 15:11 LCTERESAG [email or web address]) Nutritional Asmnt/Malnutrition Patient General Information Nutritional Screening Low Risk Consult Diagnosis left foot cellulitis Pertinent Medical Hx/Surgical Hx No significant medical hx Subjective Information Pt seen sitting up in bed at time of visit, just finished lunch. Pt does not speak [place]. Pt showed good lunch. Per EMR, PO intake 100%, meeting nutritional needs. Consult received for weeping foot/wounds. Current Diet Order/ Nutrition Support regular Pertinent Medications nacl 0.9% Pertinent Labs 06/07 Cl 108, glucose 98, A1c 4 .8 Nutritional Hx/Data Height 1.6 m Height (Calculated Centimeters) 160.0 Current Weight (lbs) 63.957 kg Weight (Calculated Kilograms) 64.0 Weight (Calculated Grams) 11545.5 [place] Body Weight 115 Body Mass Index (BMI) 25.0 Weight Status Overweight GI Symptoms GI Symptoms None Last BM 06/09 Difficult in: None Skin Integrity/Comment: CELLULITIS ON LEFT FOOT Current %PO Good (75-100%) Estimated Nutritional Goals BEE in Kcals: Using Current wt Calories/Kcals/Kg 23-27 Kcals Calculated 5584-7825 Protein: Using Current wt Protein g/k-1.2 Protein Calculated 65-78 Fluid: ml 1495-1755ml (1ml/kcal) Nutritional Problem 1. Problem Problem increased protien needs Etiology impaired skin integrity Signs/Symptoms: wound on left foot Malnutrition Alert Is there a minimum of two criteria No selected? Query Text:Check all the applicable criteria. A minimum of two criteria are recommended for diagnosis of either severe or non-severe malnutrition. Malnutrition Related to Morbid Obesity Malnutrition related to morbid obesity No Intervention/Recommendation Comments 1. Continue with regular diet as ordered. 2. Monitor PO intake, wt, labs and skin integrity 3. F/U as low risk in 7 days, 06/16 Expected Outcomes/Goals Expected Outcomes/Goals 1. PO intake to meet at least 75% of nutritional needs. 2. Wt stability, skin to remain intact, labs to approach WNL.
[2018-06-13] MEDS: Meropenem 1 GM in Sodium Chloride 0.9% 100 ML IV SCH (06:01)
[2018-06-13 06:34] LABS: ALB/GLOB RATIO 1.5 (1.0-1.8); ALBUMIN 3.2 gm/dL (3.7-5.3); ALKALINE PHOSPHATASE 29 U/L (34-104); ANION GAP 8.4 (7.0-16.0); BILIRUBIN,TOTAL 0.4 mg/dL (0.3-1.0); BUN - UREA NITROGEN 5 mg/dL (7-25); CALCIUM SERUM 8.2 mg/dL (8.6-10.3); CARBON DIOXIDE 25.4 mEq/L (21.0-31.0); CHLORIDE 108 mEq/L (98-107); CREATININE - SERUM 0.5 mg/dL (0.6-1.2); GFR AFRICAN-AMERICAN > 60.0 ml/min (>90); GFR NON AFRICAN-AMERICAN > 60.0 ml/min; GLUCOSE 83 mg/dL (70-105); POTASSIUM SERUM 3.8 mEq/L (3.5-5.1); SGOT 26 U/L (13-39); SGPT/ALT 40 U/L (7-52); SODIUM SERUM 138 mEq/L (136-145); TOTAL PROTEIN,SERUM 5.3 gm/dL (6.0-8.3)
[2018-06-13 06:54] LABS: HEMATOCRIT 34.9 % (41.0-60); MEAN CELL VOLUME 84.5 fl (81-100); MEAN CORPUSCULAR HEMOGLOBIN 29.1 pg (27.0-31.0); MEAN CORPUSCULAR HGB CONC 34.4 pg (28.0-36.0); MEAN PLATELET VOLUME 9.5 fl; PLATELET COUNT 131 Th/cmm (150-400); RED BLOOD COUNT 4.14 Mil/cmm (3.80-5.10); RED CELL DISTRIBUTION WIDTH 12.5 % (11.5-20.0); WHITE BLOOD COUNT 6.4 Th/cmm (4.8-10.8)
[2018-06-13 07:37] LABS: BAND NEUTROPHILE 1 % (0-10); BASOPHIL 0 % (0-3); EOSINOPHIL 15 % (0-5); LYMPHOCYTE 33 % (20-50); MONOCYTE 6 % (2-10); NEUTROPHILS 45 % (40-80)
--- NOTE | 2018-06-13 09:00 | Discharge Summary ---
General Discharge Summary - Discharge Summary Date of Admission: 06/07/18 Admitting Diagnosis: Cellulitis Discharge Date: 06/13/18 Discharge Diagnosis: Cellulitis Laboratory Findings: Laboratory Results - last 24 hr 06/13/18 06/13/18 06:00 06:00 WBC 6.4 RBC 4.14 Hgb 12.0 Hct 34.9 L MCV 84.5 MCH 29.1 MCHC Differential 34.4 RDW 12.5 Plt Count 131 L MPV 9.5 Add Manual Diff YES Band Neutrophils % 1 Neutrophils (Manual) 45 Lymphocytes 33 Monocytes 6 Eosinophils 15 H Basophils 0 Sodium 138 Potassium 3.8 Chloride 108 H Carbon Dioxide 25.4 Anion Gap 8.4 BUN 5 L Creatinine 0.5 L Est GFR ( Amer) > 60.0 Est GFR (Non-Af Amer) > 60.0 BUN/Creatinine Ratio 10.0 Glucose 83 Calcium 8.2 L Total Bilirubin 0.4 AST 26 ALT 40 Alkaline Phosphatase 29 L Total Protein 5.3 L Albumin 3.2 L Globulin 2.1 Albumin/Globulin Ratio 1.5 Hospital Course: Patient responded to treatment, cellulitis improved. Treatment: Patient was started with Vanco and sozyn, later was change to Meropenem. Patient improved. Condition at Discharge: Stable Disposition: PT DISCHARGED HOME Inpatient Medications: Current Medications Sodium Chloride (Nacl 0.9%) 1,000 mls @ 75 mls/hr IV .[id number] [facility] Stop: 08/06/18 23:29 Last Admin: 06/12/18 20:03 Dose: 75 mls/hr Meropenem 1 gm/ Sodium (Chloride) 100 mls @ 100 mls/hr IV Q8H [facility] Stop: 08/08/18 13:59 Last Admin: 06/13/18 06:01 Dose: 100 mls/hr Naproxen (Naprosyn) 500 mg PO BIDWM [facility] Stop: 08/07/18 17:59 Last Admin: 06/13/18 08:06 Dose: 500 mg Terbinafine HCl (Lamisil) 250 mg PO DAILY [facility] Stop: 08/08/18 08:59 Last Admin: 06/13/18 08:06 Dose: 250 mg Activity: As Tolerated Discharge Diet: Regular Consults and Follow-Up: Sedrick Lowe [Primary Care Provider] - Consulting Speciality: Other (To make an appointment with Me in one week.)
== END 2018-06-13 11:03 | disposition home or self-care (01) | DRG 383 ==
LOC: ER 19:37 → MSI 23:25
PROVIDERS: ADMIT General Practice; ATTEND General Practice
DX: L03.116 Cellulitis of left lower limb (principal); L97.529 Non-pressure chronic ulcer of other part of left foot with unspecified severity; B35.3 Tinea pedis; S90.922A Unspecified superficial injury of left foot, initial encounter
CPT/HCPCS: 36415-UA; 71045-TC; 73701-TC-LT; 80053-TC; 80202-TC; 83036-90; 85007-TC; 85025-TC; 85652-TC; 86141-TC; 87070-90; 93925-TC; 93926-LT-TC; 93970-TC-50; 93971-TC-LT; 96374; A4217; J2185; J2543; J3370; J7030; Q9967; Z7610